=== PATIENT | female | born 1980 | race Caucasian/White ===

== ENCOUNTER 2017-09-14 03:42 | Emergency (ER) | payer OTHER ==
[~2017-09-14] VITALS: Ht 162.6 cm; Wt 74.0 kg
[~2017-09-14 03:42] MED LIST: ALDACTONE100 MG PO; ASPIRIN81 M2 PO; B COMPLETE1 EACH PO; BUPROPION HCL100 M1 PO; CYANOCOBALAM1000 MCG PO; Cranberry Extract PO; FISH OIL300 MG PO; HYDROCODON-ACE1 EAC7 PO; INDERAL40 MG PO; INVanz IV; LEVOTHYROXINE75 MCG PO; LO-DOSE ASPIRIN81 M1 PO; MULTIPLE VITAM1 EAC4 PO; Motrin PO; NOHOMEMEDS; PRILOSEC40 MG PO; PROZAC20 MG PO; PROzac PO; SERTRALINE HCL100 MG PO; SPIRONOLACTONE50 MG PO; SPRINTEC1 EACH PO; THERAGRAN1 TABLET PO; TOPROL XL50 MG PO; VALACYCLOVIR500 MG PO; VITAMIN C1000 M1 PO; Vicodin,Lortab 5/500 PO; WELLBUTRIN100 MG PO; ZOLOFT100 MG PO; ZOMIG5 MG PO
[2017-09-14 04:30] VITALS: BP 119/84
[2017-09-14 04:30] LABS: HEMATOCRIT 44.3 % (36.0-46.0); HEMOGLOBIN 15.2 G/DL (11.9-15.5); MCH 33.3 PG (29.0-34.0); MCHC 34.3 G/DL (30.0-36.0); MCV 97.1 FL (83-99); PLATELET COUNT 266 K/uL (156-360); RBC DIS.WIDTH-CV 12.1 % (11.8-14.6); RBC DIS.WIDTH-SD 43.8 % (39-53); RED BLOOD COUNT 4.56 M/uL (3.80-5.20); WHITE BLOOD COUNT 11.9 K/uL (4.1-10.2)
[2017-09-14 04:42] LABS: CHLORIDE 106 mEq/L (99-109); POTASSIUM 3.6 mEq/L (3.7-5.4); SODIUM 142 mEq/L (136-147)
[2017-09-14 04:43] LABS: GLUCOSE 120 mg/dL (70-99)
[2017-09-14 04:47] LABS: GFR ESTIMATE (CALCULATED) > 59 mL/min/
[2017-09-14 04:48] LABS: UREA NITROGEN (BUN) 20 mg/dL (9-23)
[2017-09-14 04:57] LABS: QUANTITATIVE HCG < 4.0 MIU/ML
[2017-09-14] MEDS ORDERED: MEDROL DOSEPAK4 MG PO (05:51)
== END 2017-09-14 06:28 | disposition home or self-care (01) ==
LOC: EME 03:42
PROVIDERS: Physician Assistant
DX: T71.193A Asphyxiation due to mechanical threat to breathing due to other causes, assault, initial encounter (principal); Y04.8XXA Assault by other bodily force, initial encounter; K21.9 Gastro-esophageal reflux disease without esophagitis; F32.9 Major depressive disorder, single episode, unspecified; F41.9 Anxiety disorder, unspecified; Z72.0 Tobacco use; Z86.718 Personal history of other venous thrombosis and embolism
CPT/HCPCS: 70498; 80048; 84702; 85027; 99281; 99283